=== PATIENT | male | born 1950 | race Caucasian/White ===

== ENCOUNTER 2021-11-14 11:19 | Outpatient (REF) | payer MEDICARE, SELFPAY ==
[2021-11-14 14:23] LABS: Hematocrit 44.8 % (42.0-52.0); Hemoglobin 14.3 g/dl (14.0-18.0); Mean Corpuscular HGB Conc 31.9 g/dl (31.0-36.0); Mean Corpuscular Volume 81.6 fL (80.0-98.0); Platelet Count 126 X10*3/uL (160-400); Red Blood Count 5.49 X10*6/uL (4.60-5.80); White Blood Count 12.5 X10*3/uL (4.8-10.8)
[2021-11-14 14:36] LABS: Alanine Aminotransferase 52 U/L (0-40); Albumin Level 3.8 g/dL (3.5-5.0); Alkaline Phosphatase 122 U/L (39-117); Anion Gap 16 (12-20); Aspartate Amino Transferase 49 U/L (5-37); Bilirubin Direct 0.7 mg/dL (0.0-0.5); Bilirubin Total 1.3 mg/dL (0.0-1.0); Blood Urea Nitrogen 23 mg/dL (9-16); Calcium 8.7 mg/dL (8.4-10.2); Carbon Dioxide 24 mmol/L (22-29); Chloride 98 mmol/L (96-108); Estimated Glomerular Filt Rate 51; Glucose Random 232 mg/dL (60-115); Potassium 4.5 mmol/L (3.3-5.1); Sodium 133 mmol/L (135-145)
[2021-11-14 15:14] LABS: Erythrocyte Sedimentation Rate 67 MM/HR (0-15)
[2021-11-14 15:55] LABS: Influenza A PCR NEGATIVE (Negative); Influenza B PCR NEGATIVE (Negative); Resp Syncy Virus RNA Qual PCR NEGATIVE (Negative); SARS COV2 PCR INHOUSE NEGATIVE (Negative)
== END 2021-11-14 11:20 | disposition home or self-care (01) ==
LOC: HO.HMGCLDS 11:19
PROVIDERS: PCP Internal Medicine; Visit Provider Internal Medicine
DX: Z20.822 Contact with and (suspected) exposure to COVID-19 (principal); R09.89 Other specified symptoms and signs involving the circulatory and respiratory systems; R43.9 Unspecified disturbances of smell and taste
CPT/HCPCS: 0241U; 36415; 80048; 80076; 85027; 85652

== ENCOUNTER 2021-12-04 08:17 | Outpatient (REF) | payer MEDICARE, SELFPAY ==
[2021-12-04 11:08] LABS: MANUAL DIFF FLAG NO
[2021-12-04 11:25] LABS: Basophils Percent Auto 0.3 % (0-2); Eosinophils Absolute Auto 0.1 X10*3/uL (0.0-0.4); Eosinophils Percent Auto 0.6 % (0-4); Estimated Average Glucose 197 mg/dL; Hematocrit 41.9 % (42.0-52.0); Hemoglobin 13.5 g/dl (14.0-18.0); Hemoglobin A1c % 8.5 %; Imm Gran Abs Auto 0.03 X10*3/uL (0.00-0.03); Imm Gran Pct Auto 0.3 % (0.0-0.4); Lymphocytes Percent Auto 33.2 % (20-40); Mean Corpuscular HGB Conc 32.2 g/dl (31.0-36.0); Mean Corpuscular Hemoglobin 26.3 pg (27.0-33.0); Mean Corpuscular Volume 81.7 fL (80.0-98.0); Mean Platelet Volume 10.4 fL (9.4-12.4); Monocytes Absolute Auto 0.7 X10*3/uL (0.1-1.2); Monocytes Percent Auto 7.9 % (2-11); Neutrophils Absolute Auto 5.2 x10*3/uL (2.0-8.3); Neutrophils Percent Auto 57.7 % (45-73); Platelet Count 283 X10*3/uL (160-400); Red Blood Count 5.13 X10*6/uL (4.60-5.80); Red Cell Distribution Width 14.6 % (11.0-16.0)
[2021-12-04 11:53] LABS: Alanine Aminotransferase 21 U/L (0-40); Albumin Level 3.7 g/dL (3.5-5.0); Alkaline Phosphatase 115 U/L (39-117); Anion Gap 15 (12-20); Aspartate Amino Transferase 27 U/L (5-37); Bilirubin Total 0.5 mg/dL (0.0-1.0); Blood Urea Nitrogen 13 mg/dL (9-16); C Reactive Protein 1.15 mg/dL (< or = 0.50); Calcium 9.3 mg/dL (8.4-10.2); Carbon Dioxide 26 mmol/L (22-29); Chloride 106 mmol/L (96-108); Cholesterol 243 mg/dL; Estimated Glomerular Filt Rate > 60; Glucose Random 103 mg/dL (60-115); HDL Cholesterol 33 mg/dL; Iron 83 mcg/dL (45-160); LDL Cholesterol Calculated 183 mg/dl; Percent Iron Saturation 33 % (15-50); Potassium 4.7 mmol/L (3.3-5.1); Sodium 142 mmol/L (135-145); Total Iron Binding Capacity 250 mcg/dL (228-428); Total Protein 6.9 g/dL (6.5-8.0); Triglycerides 138 mg/dL; Unsaturated Iron Binding 167 ug/dL
[2021-12-04 12:03] LABS: HBsAGNum1 0.24 S/CO (0.00-0.99); Hepatitis B Surface Antigen Negative (Negative); ~HepC Num1 0.18 S/CO (0.00-0.79); ~Hepatitis C Antibody Nonreactive (Nonreactive)
[2021-12-04 12:13] LABS: Creatinine Urine 256.82 mg/dL; Microalbum/Creatinine Ratio Ur 101.6 ug/mg cr
[2021-12-04 12:18] LABS: Folate 5.6 ng/mL (> or = 4.0); Vitamin B12 301 pg/mL (200-900)
[2021-12-04 12:24] LABS: Erythrocyte Sedimentation Rate 33 MM/HR (0-15)
[2021-12-04 12:25] LABS: HBc Num1 0.21 S/CO (0.00-0.79); Hepatitis B Core Antibody Nonreactive (Nonreactive); ~Hepatitis B Surface Antibody NONREACTIVE (Nonreactive)
[2021-12-04 12:27] LABS: Ferritin 294 ng/mL (20-250); Free T4 (Free Thyroxine) 1.06 ng/dL (0.71-1.85); PSA,Total (Free>4and<10) 7.44 ng/mL (0.00-4.00); Thyroid Stimulating Hormone 0.97 uIU/mL (0.32-4.0)
[2021-12-05 12:21] LABS: Free Prostate Spec Ag 1.3 ng/mL; Percent Free Prostate Spec Ag 18 % (calc) (>25); Prostate Specific Ag Total 7.1 ng/mL (< OR = 4.0)
[2021-12-05 14:15] LABS: Anti Nuclear Antibody Screen NEGATIVE (NEGATIVE)
== END 2021-12-04 08:18 | disposition home or self-care (01) ==
LOC: HO.HMGCLDS 08:17
PROVIDERS: PCP Internal Medicine; Visit Provider Internal Medicine
DX: Z12.5 Encounter for screening for malignant neoplasm of prostate (principal); R70.0 Elevated erythrocyte sedimentation rate; E11.65 Type 2 diabetes mellitus with hyperglycemia; R79.89 Other specified abnormal findings of blood chemistry; E78.00 Pure hypercholesterolemia, unspecified; D69.6 Thrombocytopenia, unspecified; R97.20 Elevated prostate specific antigen [PSA]
CPT/HCPCS: 36415; 80053; 80061; 82043; 82607; 82728; 82746; 83036; 83540; 84153; 84154; 84439; 84443; 85025; 85652; 86038; 86039; 86140; 86704; 86706; 86803; 87340

== ENCOUNTER 2021-12-23 09:46 | Outpatient (REF) | payer MEDICARE, SELFPAY ==
--- NOTE | ~2021-12-23 | US_ITS ---
EXAMINATION: US ABDOMEN COMPLETE CLINICAL INFORMATION: Elevated LFTs. COMPARISON: CT abdomen and pelvis without contrast 07/07/2018. MRI/MRCP abdomen without contrast 04/15/2013. Abdominal ultrasound complete 01/17/2013. TECHNIQUE: Real-time imaging of the abdominal viscera. FINDINGS: PANCREAS: There is mild fatty infiltration. Otherwise, unremarkable. ABDOMINAL AORTA: The proximal, mid, and distal segments are normal in caliber. INFERIOR VENA CAVA: Visualized portions are normal. LIVER: The liver is normal in size. The liver contour is normal. Parenchymal echogenicity is heterogeneous. There are benign, calcified granulomas within the left hepatic lobe. Within the right hepatic lobe, a 7 x 7 x 6 mm anechoic, simple cyst is seen. Within the left hepatic lobe, a 1.3 x 1.4 x 1.6 cm simple cyst is seen. There is no intrahepatic biliary duct dilatation seen. GALLBLADDER: A 5 mm nonmobile polyp is seen of the inferior wall. The gallbladder is physiologically distended without evidence of stones, sludge, polyps, wall thickening or pericholecystic fluid. COMMON BILE DUCT: Normal in caliber measuring 0.34 cm in diameter. RIGHT KIDNEY: At the upper pole, a 2.7 cm simple cyst is seen. At the interpolar aspect, a mildly complex (Bosniak 2) cyst is seen, with single fine septation. This shows no mural nodularity associated color Doppler flow. The appearance is benign, and no ultrasound follow-up is recommended. At the lower pole, a 3.1 cm in maximal diameter simple cyst is seen. No hydronephrosis or renal calculi. The kidney measures 11.3 cm in maximum dimension. LEFT KIDNEY: At the upper pole, a 1.7 cm in maximum diameter simple cyst is seen. At the lower pole, 2.7 cm and 0.9 cm in maximal diameter simple cysts are seen. No hydronephrosis or renal calculi. The kidney measures 12.1 cm in maximum dimension. SPLEEN: Normal. The spleen measures 12.0 cm in maximum dimension. FREE FLUID: None. US/US abdomen complete IMPRESSION: 1. There is generalized increase in hepatic echotexture, consistent with fatty infiltration or hepatocellular disease. Please correlate clinically. No focal hepatic mass or intrahepatic biliary dilatation is seen. 2. A 5 mm nonmobile gallbladder polyp is noted. As a precaution, a repeat abdominal ultrasound examination is recommended in 6 months to ensure stability of this finding. 3. Multiple benign appearing hepatic and bilateral renal cysts are noted, as detailed above.
[2021-12-23 12:06] LABS: Creatinine Urine 157.99 mg/dL
== END 2021-12-23 09:47 | disposition home or self-care (01) ==
LOC: HO.US 09:46
PROVIDERS: PCP Internal Medicine; Visit Provider Internal Medicine
DX: E11.65 Type 2 diabetes mellitus with hyperglycemia (principal); R79.89 Other specified abnormal findings of blood chemistry
CPT/HCPCS: 76700

== ENCOUNTER → 2022-03-03 11:03 | Outpatient (BNVA) | payer MEDICARE, SELFPAY | PROVIDERS: PCP Internal Medicine; Visit Provider Urology | DX: R97.20 Elevated prostate specific antigen [PSA] (principal); N40.0 Benign prostatic hyperplasia without lower urinary tract symptoms | CPT/HCPCS: 99202 ==

== ENCOUNTER 2022-06-02 10:13 | Outpatient (REF) | payer MEDICARE, SELFPAY ==
[2022-06-02 11:37] LABS: PSA,Total (Free>4and<10) 4.63 ng/mL (0.00-4.00)
[2022-06-03 09:52] LABS: Free Prostate Spec Ag 0.8 ng/mL; Percent Free Prostate Spec Ag 17 % (calc) (>25); Prostate Specific Ag Total 4.7 ng/mL (< OR = 4.0)
== END 2022-06-02 10:14 | disposition home or self-care (01) ==
LOC: HO.LAB 10:13
PROVIDERS: PCP Internal Medicine; Visit Provider Urology
DX: Z12.5 Encounter for screening for malignant neoplasm of prostate (principal); N13.8 Other obstructive and reflux uropathy; N40.1 Benign prostatic hyperplasia with lower urinary tract symptoms
CPT/HCPCS: 36415; 84153; 84154

== ENCOUNTER 2022-07-03 12:25 | Outpatient (REF) | payer MEDICARE, SELFPAY ==
--- NOTE | ~2022-07-03 | US_ITS ---
EXAMINATION: US ABDOMEN COMPLETE CLINICAL INFORMATION: Gallbladder polyp. Elevated LFTs. COMPARISON: Ultrasound abdomen complete 12/23/2021 and 01/17/2013. CT abdomen and pelvis 07/07/2018. TECHNIQUE: Real-time imaging of the abdominal viscera. FINDINGS: PANCREAS: The pancreas is heterogeneous echotexture but normal size. ABDOMINAL AORTA: The proximal, mid, and distal segments are normal in caliber. INFERIOR VENA CAVA: Visualized portions are normal. LIVER: The liver is normal in size. The liver contour is normal. Parenchymal echogenicity is coarse, heterogeneous echotexture. There is anechoic cyst left hepatic lobe measuring 1.2 x 1.2 x 1.7 cm and cyst in the right hepatic lobe measuring 0.7 x 0.6 x 0.6 cm. There is no intrahepatic biliary duct dilatation seen. GALLBLADDER: There is a echogenic nonmobile polyps in the neck measuring 0.8 x 0.6 x 1.0 cm. Previously noted 5 mm polyp along the inferior wall is not seen. The gallbladder is physiologically distended without evidence of stones, sludge, wall thickening or pericholecystic fluid. COMMON BILE DUCT: Normal in caliber measuring 0.3 cm in diameter. RIGHT KIDNEY: There is anechoic cyst in upper pole measuring 3.2 x 2.6 x 2.8 cm, complex midpole cyst with septation measuring 2.5 x 2.1 x 2.3 cm and lower pole anechoic cyst measuring 2.3. 2.0 x 2.5 cm. No additional cysts seen. No hydronephrosis or renal calculi. The kidney measures 11.2 cm in maximum dimension. LEFT KIDNEY: There is anechoic cyst in the lower pole measuring 2.3 x 2.0 x 2.5 cm. No hydronephrosis or renal calculi. The kidney measures 11.5 cm in maximum dimension. SPLEEN: Normal. The spleen measures 12.0 cm in maximum dimension. FREE FLUID: None. US/US abdomen complete IMPRESSION: Normal-sized pancreas with heterogeneous echogenic texture. No focal lesion seen. Coarse echogenic liver with liver cysts. Small 8 mm polyp different from the previous one. The other polyp seen previously is not seen at this time. Bilateral simple renal cysts. There is a complex cyst midpole right kidney.
== END 2022-07-03 12:26 | disposition home or self-care (01) ==
LOC: HO.US 12:25
PROVIDERS: Visit Provider Internal Medicine
DX: K82.4 Cholesterolosis of gallbladder (principal); R79.89 Other specified abnormal findings of blood chemistry; N40.0 Benign prostatic hyperplasia without lower urinary tract symptoms; R97.20 Elevated prostate specific antigen [PSA]
CPT/HCPCS: 51798; 76700; 99212

== ENCOUNTER 2022-12-15 10:30 | Outpatient (REF) | payer MEDICARE, SELFPAY ==
[2022-12-15 12:46] LABS: PSA,Total (Free>4and<10) 6.38 ng/mL (0.00-4.00)
[2022-12-16 09:28] LABS: Percent Free Prostate Spec Ag 18 % (calc) (>25); Prostate Specific Ag Total 5.7 ng/mL (< OR = 4.0)
== END 2022-12-15 10:31 | disposition home or self-care (01) ==
LOC: HO.LAB 10:30
PROVIDERS: PCP Internal Medicine; Visit Provider Urology
DX: Z12.5 Encounter for screening for malignant neoplasm of prostate (principal); R97.20 Elevated prostate specific antigen [PSA]; N40.1 Benign prostatic hyperplasia with lower urinary tract symptoms; N13.8 Other obstructive and reflux uropathy
CPT/HCPCS: 36415; 84153; 84154

== ENCOUNTER → 2023-01-05 13:04 | Outpatient (BNVA) | payer MEDICARE, SELFPAY | PROVIDERS: PCP Internal Medicine; Visit Provider Urology | DX: R97.20 Elevated prostate specific antigen [PSA] (principal); N40.0 Benign prostatic hyperplasia without lower urinary tract symptoms | CPT/HCPCS: 99212 ==

== ENCOUNTER 2023-10-18 09:49 | Day surgery (SDC) | payer MEDICARE, SELFPAY ==
--- NOTE | 2023-10-15 09:28 | P.CONAN_ITS ---
Documented by User: Shwetha Acosta NP 10/15/23 09:29 HPI - Anesthesia Eval Consult details Narrative: 72yo M for Colonoscopy PMFSH Active Problems Active Problems: All Active Problems (Updated 10/13/23 @ 20:36 by Eli Walker RN) COVID-19 virus infection (Acute) BPH (benign prostatic hyperplasia) (Acute) Gallbladder polyp (Acute) Tubular adenoma of colon (Acute) Thrombocytopenia (Acute) PSA elevation (Acute) LFT elevation (Acute) Sedimentation rate elevation (Acute) Malaise and fatigue (Acute) Tobacco abuse (Acute) Type 2 diabetes mellitus with hyperglycemia (Acute) Hypercholesterolemia (Acute) Obesity (BMI 30-39.9) (Acute) Past Medical History Medical History Diverticular disease Pancreatitis Hemorrhoids Lumbar spondylosis Tobacco abuse Diabetic nephropathy Type 2 diabetes mellitus with hyperglycemia Hypercholesterolemia Obesity (BMI 30-39.9) Nephrolithiasis Surgical History Surgical History History of eye surgery History of colonoscopy History of prostate surgery Social History Social History Housing: Apartment Patient Tobacco Use Status: Current everyday Tobacco user Tobacco use type: Cigarette Cigarettes Per Day: 3 e-Cigarette/Vaping Use: Never Used Second Hand Smoke Exposure: No Are you DNR?: No Advance Directives: No Advance Directives Information Provided: Yes Current occupational status: retired Meds Allergies Allergy/AdvReac Type Severity Reaction Status Date / Time No Known Allergies Allergy Verified 01/05/23 13:23 [No Known Allergies*] Home Medications Medication Instructions Recorded Confirmed Last Taken Type aspirin 81 mg capsule 81 mg PO DAILY 10/13/23 10/13/23 10/11/23 History Assessment and Plan Assessment Anesthesia Assessment: Chart Reviewed Documented by User: Angy Vuong MD 10/18/23 12:07 [facility] Active Problems Active Problems: All Active Problems (Updated 10/18/23 @ 11:43 by Angy Vuong MD) BPH (benign prostatic hyperplasia) (Acute) Gallbladder polyp (Acute) Tubular adenoma of colon (Acute) H/o Thrombocytopenia (Acute) PSA elevation (Acute) H/o LFT elevation (Acute) H/o Sedimentation rate elevation (Acute) Tobacco abuse (Acute)- last cigarette yesterday Type 2 diabetes mellitus with hyperglycemia (Acute) Hypercholesterolemia (Acute) Obesity BMI 33.3 Past Medical History Medical History Diverticular disease Pancreatitis Hemorrhoids Lumbar spondylosis Tobacco abuse Diabetic nephropathy Type 2 diabetes mellitus with hyperglycemia Hypercholesterolemia Obesity (BMI 30-39.9) Nephrolithiasis Family History Family history of problems with anesthesia: No Surgical History Surgical History History of eye surgery History of colonoscopy History of prostate surgery History of Problems with Anesthesia: No Social History Social History Housing: Apartment Patient Tobacco Use Status: Current everyday Tobacco user Tobacco use type: Cigarette Cigarettes Per Day: 3 e-Cigarette/Vaping Use: Never Used Second Hand Smoke Exposure: No Are you DNR?: No Advance Directives: No Advance Directives Information Provided: Yes Current occupational status: retired [employer] Allergies Allergy/AdvReac Type Severity Reaction Status Date / Time No Known Allergies Allergy Verified 01/05/23 13:23 [No Known Allergies*] Home Medications Medication Instructions Recorded Confirmed Last Taken Type aspirin 81 mg capsule 81 mg PO DAILY 10/13/23 10/13/23 10/11/23 History Exam Height,Weight and Vital Signs: Height 5 ft 8 in Weight 99.337 kg Vital Signs Temp Pulse Resp BP Pulse Ox O2 Del Method 10/18/23 11:23 74 16 10/18/23 10:43 98.3 F 82 18 152/76 H 98 Room Air Pertinent Lab Results Pertinent Lab Results: Lab Results 10/18/23 Range/Units 10:53 POC Glucose 180 H (60-115) mg/dL Airway Mallampati Class: III TM Dist: >3cm Neck ROM: Full Loose/Missing/Broken Teeth: Yes (Many missing teeth. No broken or loose teeth) Heart: RRR Lungs: CTAB post respiratory treatment Assessment and Plan Assessment Anesthesia Assessment: Anesthesia Plan Discussed Final Anesthetic Review Family History of Problems with Anesthesia: No History of Problems with Anesthesia: No NPO: Yes ASA Class: III Final Preanesthetic Review: No Changes in Pt Med Stat, Meds/Allgs Chart Reviewed, Consent Obtained/Reviewed and Anes Risks/Benef Reviewed Patient Risk: Intermediate Procedure Risk: Low Assessment/Block/Sedation in SS: Assess/Block/Sedation-SS Anesthetic Plan Anesthetic Plan: MAC: Disposition: Standard PACU
[2023-10-18 10:43] VITALS: BP 152/76; PULSE 82; RESP 18; TEMP 36.8; O2SAT 98
[2023-10-18 11:00] LABS: Glucose, Whole Blood 180 mg/dL (60-115)
[2023-10-18 11:01] VITALS: BMI 33.3
[2023-10-18] MEDS: Lactated Ringers 1,000 ML 100 ML IVCONT (11:11)
[2023-10-18] MEDS: Albuterol Sulfate (0.083%) 2.5 MG/3 ML VIAL.NEB INHALE (11:21)
[2023-10-18 11:23] VITALS: PULSE 74; RESP 16; O2SAT 98
[2023-10-18 13:28] VITALS: BP 93/61; PULSE 91; RESP 14; TEMP 36.4; O2SAT 93
--- NOTE | 2023-10-18 13:29 | PM.OP ---
Brief Operative Note Date of Service: 10/18/23 Pre-op diagnosis: Screening Post-op diagnosis: other (Colon polyps) Procedure: Colonoscopy to the cecum and TI with bx/removal of polyps Surgeon: Tucker Ham MD Anesthesia: MAC Was an Quarter Inspector used for this Procedure?: No Estimated blood loss (mL): 2.0 Pathology: other (A. Ascending colon polyp B. Transverse colon polyp) Condition: stable Disposition: PACU
[2023-10-18 13:43] VITALS: BP 127/83; PULSE 74; RESP 18; O2SAT 95
--- NOTE | 2023-10-19 00:40 | OP_ITS ---
DATE OF SERVICE: 10/18/2023 SURGEON: Tucker Ham MD INDICATIONS: The patient presents for evaluation of personal history of tubular adenoma of the colon and colorectal cancer screening. Full consent has been obtained from him for this, including risks of bleeding and perforation. PREOPERATIVE DIAGNOSIS: Colorectal cancer screening and personal history of tubular adenoma of the colon. POSTOPERATIVE DIAGNOSIS: Colorectal cancer screening and personal history of tubular adenoma of the colon, small colon polyps, lipoma, diverticulosis, internal hemorrhoids. PROCEDURE PERFORMED: Colonoscopy to the cecum and terminal ileum with biopsy removal of polyps. ESTIMATED BLOOD LOSS: COMPLICATIONS: ANESTHESIA: Medication used: Monitored anesthesia care. ASSISTANTS: SPECIMENS: DESCRIPTION OF PROCEDURE: The patient was placed in the left lateral decubitus position. The digital rectal exam revealed no abnormalities. The Olympus video pediatric colonoscope was entered into the rectum and advanced easily to the cecum. Once in the cecum, I did identify normal-appearing ileocecal valve. The terminal ileum was cannulated and appeared normal. Scope was withdrawn back in the colon. The cecum appeared normal, although visualization was somewhat limited due to the residual liquid stool, which had to be irrigated and suctioned. However, the cecum itself was fairly well visualized and did appear normal. The scope was then slowly withdrawn, assessing all mucosal surfaces carefully. Preparation throughout the colon was for the most part good, but there were definitely areas of a lot of liquid stool, which had to be irrigated and suctioned away, and thus, limiting visualization somewhat. I did not visualize any sign of colitis nor angiodysplasia. In the ascending colon, right next to a lipoma, was an approximately 4 mm polyp, which was biopsied and completely removed with cold biopsy forceps. The lipoma itself was quite soft and consistent with a lipoma without any overlying mucosal abnormality. In the transverse colon, was an approximately 3 or 4 mm polyp, which was biopsied and completely removed with cold biopsy forceps as well. I did not visualize any other polyps. There was a mild amount of sigmoid diverticulosis. In the rectum, scope was retroflexed, visualizing internal hemorrhoids, but no other pathology. The rectal mucosa appeared normal. The scope was straightened and withdrawn from the patient. He tolerated the procedure well and was returned to the recovery area in stable condition. IMPRESSION: 1. Colon polyps. 2. Diverticulosis. 3. Internal hemorrhoids. 4. Lipoma of colon. PLAN: Given these findings and his age, and two previous colonoscopies, I do not think any further screening colonoscopies in the future. He will see me on a p.r.n. basis. MD JOSIANE Dumas/ASHLEY / [phone]
== END 2023-10-18 14:58 | disposition home or self-care (01) ==
PROVIDERS: PCP Internal Medicine; Visit Provider Internal Medicine
PROC: 0DJD8ZZ Inspection of Lower Intestinal Tract, Via Natural or Artificial Opening Endoscopic (ICD-10-PCS; CPT 45378; principal; 2023-10-18 11:50)
DX: Z12.11 Encounter for screening for malignant neoplasm of colon (principal); D12.3 Benign neoplasm of transverse colon; K57.30 Diverticulosis of large intestine without perforation or abscess without bleeding; K64.8 Other hemorrhoids; Z86.010 Personal history of colon polyps; E11.65 Type 2 diabetes mellitus with hyperglycemia; E78.00 Pure hypercholesterolemia, unspecified; F17.210 Nicotine dependence, cigarettes, uncomplicated; E66.9 Obesity, unspecified; Z68.33 Body mass index [BMI] 33.0-33.9, adult; Z79.82 Long term (current) use of aspirin
CPT/HCPCS: 45380; 82947; 88305; 94640; J2704; J2765